=== PATIENT | male | born 1945 | race Caucasian/White ===

== ENCOUNTER → 2016-08-07 | Outpatient (CLI) | payer BC ==
--- NOTE | 2016-08-07 10:52 | RAD ---
Indication: Kidney stone. Time of exam 10:42 AM No prior studies are available for comparison. Right double-J nephroureteral stent is in place. Vague calcific densities overlies the lower pole right kidney which may represent calculi. There is also a vague density along the proximal portion of the stent at approximately the L4 level measuring 5 to 6 mm's. This may represent a calculus within the ureter. Larger calcific density overlies the left kidney lower pole measuring 14 mm consistent with a renal calculus. Postoperative changes of decompression laminectomy and posterior fusion L4-5 level is noted. Impression: Right-sided ureteral stent. There is a nonobstructing calculus lower pole left kidney and probable nonobstructing calculi lower pole right kidney. There is a question of a calculus along the stent in the proximal to mid right ureter.
== END | disposition home or self-care (01) ==
LOC: RAD 10:26
PROVIDERS: ATTEND Urology
DX: N20.0 Calculus of kidney (principal)
CPT/HCPCS: 74000